=== PATIENT | male | born 1960 | race Caucasian/White ===

== ENCOUNTER 2018-09-04 15:43 | Emergency (ER) | payer MEDICAID ==
[~2018-09-04] VITALS: Ht 182.9 cm; Wt 74.8 kg
[2018-09-04] MEDS ORDERED: methylPREDNISolone SOD SUCC 125 MG/2 ML VL IV ONE (16:15)
[2018-09-04] MEDS: IPRATROPIUM BROM 0.5 MG/2.5ML INH SOL NEB ONE ×2 (16:31→16:37)
[2018-09-04] MEDS: ALBUTEROL SULF 2.5 MG/0.5ML(0.5%) NEB SOLN NEB ONE ×2 (16:31→16:37)
[2018-09-04] MEDS ORDERED: methylPREDNISolone SOD SUCC 125 MG/2 ML VL IM ONE (17:45)
[2018-09-04 18:10] LABS: Albumin 3.3 g/dL (3.4-5.0); Anion Gap 4 (5-15); BUN/Creatinine Ratio 31.4; Blood Urea Nitrogen 33 mg/dL (7-18); Calcium 8.3 mg/dL (8.5-10.1); Carbon Dioxide 29 mmol/L (21-32); Chloride 107 mmol/L (98-107); GFR African American 93 mL/min; GFR Non-African American 77 mL/min; Glucose 101 mg/dL (74-106); Hemoglobin 13.1 g/dL (13.5-17.5); Mean Corpuscular Hemoglobin 30.9 pg (28.0-32.0); Mean Corpuscular Hgb Conc. 33.5 g/dL (32.0-36.0); Mean Corpuscular Volume 92.3 fL (80.0-100.0); Platelet Count (auto) 167 10^3/uL (140-450); Potassium 3.6 mmol/L (3.5-5.1); Red Blood Cells 4.22 10^6/uL (4.5-5.90); Red Cell Distribution Width 13.9 % (11.8-14.3); Sodium 140 mmol/L (136-145); White Blood Cell 5.6 10^3/uL (4.4-10.8)
[2018-09-04 18:17] LABS: Alanine Aminotransferase 36 U/L (16-61); Alkaline Phosphatase 70 U/L (45-117); Aspartate Aminotransferase 49 U/L (15-37); Band Neutrophils % (manual) 0; Basophils % (manual) 0 (0.0-2.0); Bilirubin, Total 0.6 mg/dL (0.2-1.0); Blast Cells 0; Metamyelocytes % 0; Myelocytes % 0; Promyelocytes % 0; Reactive Lymphocytes 0; Total Protein 6.4 g/dL (6.4-8.2)
[2018-09-04 19:15] VITALS: BP 127/86
[2018-09-04 20:02] LABS: Urine Bacteria NONE SEEN /hpf (None Seen); Urine Blood Negative /uL (Negative); Urine Mucus FEW (None Seen); Urine Specific Gravity 1.029 (1.001-1.035); Urine WBC 1 /hpf (0 - 3)
[2018-09-04 20:38] LABS: Eosinophils % (manual) 3 (0-7); Lymphocytes % (manual) 19 (10.0-50.0); Monocytes % (manual) 20 (0-12)
== END 2018-09-04 20:21 | disposition home or self-care (01) ==
LOC: EDBD 15:43 → ER 15:43
DX: J44.9 Chronic obstructive pulmonary disease, unspecified (principal); M19.90 Unspecified osteoarthritis, unspecified site; I10 Essential (primary) hypertension; Z59.0 Homelessness
CPT/HCPCS: 36415; 71045; 80053; 81001; 83880; 84484; 85007; 85027; 93005; 96372; 99284; J2930